=== PATIENT | female | born 1970 | race Two or more races ===

== ENCOUNTER 2021-12-26 13:43 | Emergency (ER) | payer OTHER ==
[~2021-12-26] VITALS: Ht 167.6 cm; Wt 59.9 kg
[~2021-12-26 13:43] MED LIST: PROTONIX40 MG PO; ZOLOFT100 MG PO
[2021-12-26] MEDS ORDERED: CLONAZEPAM0.5 MG PO (14:08)
== END 2021-12-26 15:01 | disposition home or self-care (01) ==
LOC: ER 13:43
DX: J03.90 Acute tonsillitis, unspecified (principal)